=== PATIENT | female | born 1950 | race Caucasian/White ===

== ENCOUNTER 2016-09-21 15:36 | Emergency (ER) | payer MEDICARE ==
[2016-09-21] MEDS ORDERED: LACTATED RINGERS 1,000 ML ONE (16:25)
[2016-09-21 16:38] LABS: ABSOLUTE NEUTROPHIL COUNT 7.8 K/mm3 (1.8-7.7); BASO % 0.1 % (0.2-1.0); EOS % 0.2 % (0.9-2.9); HEMATOCRIT 40.8 % (37.0-47.0); HEMOGLOBIN 13.1 gm/l (12.0-16.0); IMM NEUT% 0.4 % (0-1); LYMPH # 1.3 (1.0-4.8); LYMPH % 13.2 % (15-45); MEAN CELL VOLUME 92.1 fl (81.0-99.0); MEAN CORPUSCULAR HEMOGLOBIN 29.6 pg (27.0-31.0); MEAN CORPUSCULAR HGB CONC 32.1 g/dl (33.0-37.0); MEAN PLATELET VOLUME 11.5 fl (7.4-10.4); MONO # 0.8 (0.0-0.8); MONO % 8.1 % (4-12); PLATELET COUNT 208 K/mm3 (130-400); RED CELL DISTRIBUTION WIDTH 13.4 % (11.5-14.5)
[2016-09-21 16:51] LABS: ALB/GLOB RATIO 1.1 (>1.0); ALBUMIN 3.8 gm/dL (3.5-5.7); CALCIUM 9.5 mg/dL (8.6-10.3)
[2016-09-21] MEDS ORDERED: KETOROLAC TROMETHAMINE 15 MG/ML VIAL ONE (19:37)
[2016-09-21 19:45] LABS: SPECIFIC GRAVITY 1.015 (1.001-1.030); URINE BILIRUBIN NEGATIVE (NEGATIVE); URINE BLOOD 3+ (NEGATIVE); URINE GLUCOSE (UA) NEGATIVE (NEGATIVE); URINE LEUKOCYTE ESTERASE 2+ (NEGATIVE); URINE NITRITE POSITIVE (NEGATIVE); URINE PROTEIN 2+ (NEGATIVE); URINE UROBILINOGEN NORMAL (0-1 mg/dl)
[2016-09-21 19:46] LABS: URINE APPEARANCE CLOUDY; URINE COLOR AMBER
[2016-09-21] MEDS ORDERED: CEFTRIAXONE 1 GRAM DUPLEX 50 ML IV ONE (20:01)
[2016-09-21 20:06] LABS: URINE BACTERIA 4+; URINE WBC >100 /hpf
== END 2016-09-21 20:26 | disposition home or self-care (01) ==
LOC: ED 15:36
DX: N12 Tubulo-interstitial nephritis, not specified as acute or chronic (principal); F17.210 Nicotine dependence, cigarettes, uncomplicated
CPT/HCPCS: 83690; 85025; 87086; 80053; 87186; 81001; 96375; 99283 ×2; 96365; J1885; J7120; J0696